=== PATIENT | male | born 1955 | race Caucasian/White ===

== ENCOUNTER 2025-01-20 16:11 | Inpatient (IN) | payer MEDICARE, OTHER ==
[2025-01-20] VITALS (8 sets, daily range): BP systolic 118–136; BP diastolic 78–87; O2SAT 100
[~2025-01-20] VITALS: Ht 188 cm; Wt 84.4 kg
[2025-01-20] MEDS: ETOMIDATE 2 MG/ML VIAL IV ONE ×2 (07:12→17:17)
[2025-01-20] MEDS ORDERED: NALOXONE PREFILLED SYRINGE 2 MG/2 ML SYRINGE ONE (16:45)
[2025-01-20] MEDS ORDERED: ONDANSETRON HCL/PF 4 MG/2 ML VIAL ONE (16:45)
[2025-01-20] MEDS: NALOXONE HCL 0.4 MG/ML AMPUL IV ONE (16:57)
[2025-01-20] MEDS: ONDANSETRON HCL/PF - ER 4 MG/2 ML VIAL IV ONE (16:58)
[2025-01-20] MEDS ORDERED: ETOMIDATE 2 MG/ML VIAL ONE (17:06)
[2025-01-20] MEDS ORDERED: ROCURONIUM BROMIDE 50 MG/5 ML ONE (17:06)
[2025-01-20] MEDS ORDERED: ATROPINE SULFATE 1 MG/10 ML DISP.SYRIN ONE (17:06)
[2025-01-20] MEDS: ROCURONIUM BROMIDE 50 MG/5 ML IV ONE ×2 (17:12→17:17)
[2025-01-20 17:17] LABS: APPEARANCE,URINE CLEAR (CLEAR); BLOOD, URINE TRACE-INTA Ery/uL (NEGATIVE); LEUKOCYTE ESTERASE ,URINE 1+ (NEGATIVE); NITRITE, URINE NEGATIVE (NEGATIVE); UGLUCOSE NEGATIVE (NEGATIVE)
[2025-01-20] MEDS ORDERED: PROPOFOL 100 ML ONE ×2 (17:17→21:18)
[2025-01-20 17:24] LABS: ADD URINE CULTURE YES; SQUAMOUS EPITHELIAL CELL,UR Rare /HPF (None Seen)
[2025-01-20] MEDS: PROPOFOL 200 MG/20 ML VIAL IV ONE (17:25)
[2025-01-20 17:30] LABS: AMPHETAMINE, URINE NEGATIVE (NEGATIVE); BARBITURATE, URINE NEGATIVE (NEGATIVE); BENZODIAZEPINE, URINE NEGATIVE (NEGATIVE); CANNABINOID, URINE NEGATIVE (NEGATIVE); OPIATE, URINE NEGATIVE (NEGATIVE)
[2025-01-20 17:31] LABS: COCCAINE, URINE POSITIVE (NEGATIVE)
[2025-01-20] MEDS ORDERED: hydrALAZINE HCL IV 20 MG VIAL ONE (17:52)
[2025-01-20 18:15] LABS: PLATELET COUNT (AUTO) 257 K/uL (150-450); RED BLOOD CELL COUNT(AUTO) 4.92 MIL/uL (4.5-6.0); RED CELL DISTRIBUTION WIDTH 14.5 % (11.5-15.0); WHITE BLOOD COUNT (AUTO) 11.4 K/uL (4.3-11.0)
[2025-01-20 18:28] LABS: INR 0.97 (0.91-1.10)
[2025-01-20 18:29] LABS: CALCIUM, SERUM 9.6 mg/dL (8.5-10.1); CREATININE 2.4 mg/dL (0.6-1.3); SODIUM SERUM 140 mmol/L (136-145); UREA NITROGEN, BLOOD 22 mg/dL (7-18)
[2025-01-20] MEDS: hydrALAZINE HCL IV 20 MG VIAL IV ONE (18:30)
[2025-01-20 18:35] LABS: ALCOHOL, BLOOD < 3 mg/dL (0-10); ASPARTATE AMINOTRANSFERASE 33 U/L (15-37); TOTAL PROTEIN, SERUM 9.4 g/dL (6.4-8.2)
[2025-01-20 18:38] LABS: LACTIC ACID 2.1 mmol/L (0.4-2.0)
[2025-01-20] MEDS ORDERED: PIPERACI/TAZO 3.375GM/D5W 50ML PB IV ONE (19:23)
[2025-01-20] MEDS ORDERED: NICARDIPINE IN DEXTROSE,ISO-OS 200 ML IV ONE (19:23)
[2025-01-20] MEDS: PIPERACILLIN /TAZOBACTAM 3.375 G in IV D5W 50 ML IV ONE (19:40)
[2025-01-20] MEDS: IV NS 0.9% 1,000 ML BAG IV ONE (19:40)
[2025-01-20] MEDS ORDERED: ONDANSETRON HCL/PF 4 MG/2 ML VIAL IVP PRN (20:30)
[2025-01-20] MEDS ORDERED: ACETAMINOPHEN 650 MG/SUPP.RECT RC PRN (20:30)
[2025-01-20] MEDS: NICARDIPINE IN NACL, ISO-OSM 200 ML IV PRN (20:39)
[2025-01-20] MEDS: PROPOFOL 10MG/ML 50ML 50 ML IV PRN (21:55)
[2025-01-20] MEDS: NICARDIPINE HCL 40 MG in IV NS 0.9% 184 ML IV PRN (21:58)
[2025-01-20] MEDS: ENOXAPARIN SODIUM 40 MG/0.4 ML DISP.SYRIN SQ SCH (22:08)
[2025-01-20] MEDS: IV NS 0.9% 1,000 ML IV PRN (22:22)
[2025-01-20] MEDS: NICARDIPINE IN DEXTROSE,ISO-OS 200 ML IV ONE (23:20)
[2025-01-20] MEDS: IV D5/ 0.9% NACL 1,000 ML IV PRN (23:25)
[2025-01-20] MEDS ORDERED: DOSING PER PHARMACY-VANCOMYCIN IV XX PRN (23:30)
[2025-01-21] VITALS (44 sets, daily range): BP systolic 91–164; BP diastolic 54–111; TEMP 96.1–99.1; O2SAT 96–100
[2025-01-21] MEDS: VANCOMYCIN 1 GM in IV NS 0.9% 250 ML IV ONE (00:04)
[2025-01-21] MEDS: VANCOMYCIN 1 GM /D5W 250 ML PB IV ONE (00:04)
[2025-01-21] MEDS: ZOSYN IVPB 3.375 G in IV D5W 50ml IV ONE (01:35)
[2025-01-21] MEDS: PIPERACI/TAZO 3.375GM/D5W 50ML PB IV ONE (01:36)
[2025-01-21] MEDS ORDERED: PIPERACILLIN /TAZOBACTAM 3.375 G in IV D5W 50 ML IV SCH (02:00)
[2025-01-21] MEDS: NICARDIPINE IN DEXTROSE,ISO-OS 200 ML IV ONE (02:28)
[2025-01-21] MEDS: PROPOFOL 200 ML ONE (02:28)
[2025-01-21] MEDS: PROPOFOL 100 ML IV PRN (05:30)
[2025-01-21 05:41] LABS: PLATELET COUNT (AUTO) 242 K/uL (150-450); RED BLOOD CELL COUNT(AUTO) 4.67 MIL/uL (4.5-6.0); RED CELL DISTRIBUTION WIDTH 14.2 % (11.5-15.0); WHITE BLOOD COUNT (AUTO) 9.2 K/uL (4.3-11.0)
[2025-01-21 05:50] LABS: CALCIUM, SERUM 9.0 mg/dL (8.5-10.1); CREATININE 1.5 mg/dL (0.6-1.3); PHOSPHORUS 3.0 mg/dL (2.5-4.9); SODIUM SERUM 143.0 mmol/L (136-145); UREA NITROGEN, BLOOD 16.0 mg/dL (7-18)
[2025-01-21] MEDS ORDERED: PROPOFOL 100 ML IV PRN (06:00)
[2025-01-21] MEDS: PANTOPRAZOLE 40 MG VIAL IV SCH (08:27)
[2025-01-21] MEDS: PIPERACILLIN /TAZOBACTAM 3.375 G in IV D5W 100 ML IV SCH (08:55)
[2025-01-21] MEDS ORDERED: DC PROPOFOL WHEN EXTUBATED XX PRN (10:00)
[2025-01-21] MEDS: ALBUTEROL FS 2.5 MG/3 ML VIAL.NEB NEB SCH (10:14)
[2025-01-21 10:26] LABS: ABG BASE EXCESS 3.4 mmol/L (-2.0-3.0); ABG OXYGEN SATURATION 99.3 % (94.0-98.0); ABG PCO2 30.0 mmHg (35.0-48.0); ABG PH 7.539 (7.350-7.450); ABG PO2 187.4 mmHg (83.0-108.0); ABG TOTAL HEMOGLOBIN 15.6 G/dL (13.5-17.5); FRACTIONATED INSPIRED OXYGEN 40.0 %
[2025-01-21] MEDS ORDERED: TRAMADOL HCL 50 MG TABLET PO PRN (11:00)
[2025-01-21] MEDS: hydrALAZINE HCL IV 20 MG VIAL IV PRN (11:02)
[2025-01-21] MEDS: VANCOMYCIN 750 MG in IV D5W 250 ML IV SCH (11:20)
[2025-01-21] MEDS ORDERED: MORPHINE SULFATE INJ 2 MG/ML DISP.SYRIN IV PRN (15:00)
[2025-01-22] VITALS (39 sets, daily range): BP systolic 92–153; BP diastolic 45–98; TEMP 97.7–99.1; O2SAT 74–99
[2025-01-22 05:07] LABS: PLATELET COUNT (AUTO) 190 K/uL (150-450); RED BLOOD CELL COUNT(AUTO) 3.74 MIL/uL (4.5-6.0); RED CELL DISTRIBUTION WIDTH 14.0 % (11.5-15.0); WHITE BLOOD COUNT (AUTO) 9.8 K/uL (4.3-11.0)
[2025-01-22 05:10] LABS: CALCIUM, SERUM 8.0 mg/dL (8.5-10.1); CREATININE 2.2 mg/dL (0.6-1.3); SODIUM SERUM 143.0 mmol/L (136-145); UREA NITROGEN, BLOOD 26.0 mg/dL (7-18)
[2025-01-22] MEDS ORDERED: METHADONE HCL (40MG) 40 MG TABLET.SOL PO SCH (10:30)
[2025-01-22] MEDS: METHADONE HCL 10 MG TABLET PO SCH (11:12)
[2025-01-22] MEDS: VANCOMYCIN 1 GM in IV D5W 250ml IV SCH (13:06)
[2025-01-22 16:16] LABS: APPEARANCE,URINE CLEAR (CLEAR); BLOOD, URINE NEGATIVE Ery/uL (NEGATIVE); LEUKOCYTE ESTERASE ,URINE 1+ (NEGATIVE); NITRITE, URINE NEGATIVE (NEGATIVE); UGLUCOSE NEGATIVE (NEGATIVE)
[2025-01-22 16:17] LABS: CREATININE, URINE 117.1 MG/DL (30.0-125.0); URINE SODIUM, RANDOM 47.0 mmol/l (40-220); URINE TOTAL PROTEIN 42.2 mg/dL (0-11.9)
[2025-01-22 16:39] LABS: ADD URINE CULTURE YES
[2025-01-22 16:48] LABS: EOSINOPHIL,URINE None Seen
[2025-01-22] MEDS: UREA 10% -AHA 4% CREAM 57 GM TUBE TP ONE (21:16)
[2025-01-23 06:26] LABS: CALCIUM, SERUM 8.8 mg/dL (8.5-10.1); CREATININE 1.4 mg/dL (0.6-1.3); PLATELET COUNT (AUTO) 188 K/uL (150-450); RED BLOOD CELL COUNT(AUTO) 3.90 MIL/uL (4.5-6.0); RED CELL DISTRIBUTION WIDTH 14.5 % (11.5-15.0); SODIUM SERUM 143.0 mmol/L (136-145); UREA NITROGEN, BLOOD 13.0 mg/dL (7-18); WHITE BLOOD COUNT (AUTO) 7.0 K/uL (4.3-11.0)
[2025-01-23] MEDS: PANTOPRAZOLE 40 MG TABLET.DR PO SCH (08:50)
[2025-01-23] MEDS ORDERED: METHADONE HCL 10 MG TABLET PO SCH (09:00)
[2025-01-23 11:25] VITALS: O2SAT 98
[2025-01-23 11:40] VITALS: O2SAT 99
[2025-01-23 16:00] VITALS: BP 147/84; TEMP 98.2; O2SAT 96
[2025-01-23 16:10] VITALS: O2SAT 98
[2025-01-23 16:25] VITALS: O2SAT 99
[2025-01-23] MEDS ORDERED: ALBUTEROL FS 2.5 MG/3 ML VIAL.NEB NEB PRN (18:00)
[2025-01-23 20:00] VITALS: BP 116/79; TEMP 98.6; O2SAT 97
[2025-01-24 06:34] LABS: PLATELET COUNT (AUTO) 203 K/uL (150-450); RED BLOOD CELL COUNT(AUTO) 4.17 MIL/uL (4.5-6.0); RED CELL DISTRIBUTION WIDTH 14.5 % (11.5-15.0); WHITE BLOOD COUNT (AUTO) 7.9 K/uL (4.3-11.0)
[2025-01-24 06:47] LABS: CALCIUM, SERUM 8.9 mg/dL (8.5-10.1); CREATININE 1.3 mg/dL (0.6-1.3); SODIUM SERUM 141.0 mmol/L (136-145); UREA NITROGEN, BLOOD 11.0 mg/dL (7-18)
[2025-01-24 07:47] VITALS: O2SAT 95
[2025-01-24 08:00] VITALS: BP 152/98; TEMP 98.1; O2SAT 98
[2025-01-24 08:02] VITALS: O2SAT 98
[2025-01-24 14:31] VITALS: O2SAT 97
[2025-01-24 16:04] VITALS: BP 148/104; TEMP 97.9; O2SAT 96
== END 2025-01-24 19:18 | disposition home or self-care (01) | DRG 917 ==
LOC: ER 16:28 → ICU 20:08 → TELE 01-22 19:31 → MED 01-22 20:58
PROVIDERS: ADMIT Registered Nurse Psychiatric/Mental Health; ATTEND Internal Medicine
PROC: 5A1935Z Respiratory Ventilation, Less than 24 Consecutive Hours (ICD-10-PCS; principal; 2025-01-20)
PROC: 0BH18EZ Insertion of Endotracheal Airway into Trachea, Via Natural or Artificial Opening Endoscopic (ICD-10-PCS; 2025-01-20)
PROC: 02HV33Z Insertion of Infusion Device into Superior Vena Cava, Percutaneous Approach (ICD-10-PCS; 2025-01-20)
DX: T50.911A Poisoning by multiple unspecified drugs, medicaments and biological substances, accidental (unintentional), initial encounter (principal); A41.9 Sepsis, unspecified organism; G92.9 Unspecified toxic encephalopathy; J96.01 Acute respiratory failure with hypoxia; N17.0 Acute kidney failure with tubular necrosis; R65.20 Severe sepsis without septic shock; I16.1 Hypertensive emergency; N39.0 Urinary tract infection, site not specified; E87.6 Hypokalemia; F19.10 Other psychoactive substance abuse, uncomplicated; B96.89 Other specified bacterial agents as the cause of diseases classified elsewhere; M89.8X9 Other specified disorders of bone, unspecified site; I10 Essential (primary) hypertension; Z87.81 Personal history of (healed) traumatic fracture; Z98.890 Other specified postprocedural states; Y92.521 Bus station as the place of occurrence of the external cause; L98.9 Disorder of the skin and subcutaneous tissue, unspecified; L89.156 Pressure-induced deep tissue damage of sacral region; L84 Corns and callosities; D64.9 Anemia, unspecified; M20.12 Hallux valgus (acquired), left foot; M20.11 Hallux valgus (acquired), right foot; M21.612 Bunion of left foot; M21.611 Bunion of right foot
CPT/HCPCS: 31720; 36415; 36600; 70450-TC; 70551-TC; 71045-TC; 76770-TC; 80048-TC; 80076-TC; 80202-TC; 81001; 82570-TC; 82803-TC; 83605-TC; 83735-TC; 84100-TC; 84300-TC; 84443-TC; 84484-TC; 85025-TC; 85730-TC; 87040-TC; 87081-TC; 87086-TC; 87186-TC; 94003-TC; 94799-TC; 99082-TC; A4223; G0378; G0480; J0360; J0461; J1650; J2312; J2405; J2470; J2543; J3373; J3374; J3490; J7030; J7040; J7042; J7050; J7060